=== PATIENT | male | born 1970 | race Caucasian/White ===

== ENCOUNTER 2018-09-07 15:35 | Inpatient (IN) | payer BC ==
[2018-09-07 19:56] VITALS: BMI 25.5
--- NOTE | 2018-09-07 20:46 | HP ---
CIWA Score Nausea/Vomitin Muscle Tremors: 3 Anxiety: 2 Agitation: 2 Paroxysmal Sweats: 3 Orientation: 0-Oriented Tacttile Disturbances: 2-Mild Itch/Numbness/Burn Auditory Disturbances: 2-Mild Harshness/Frighten Visual Disturbances: 1-Very Mild Sensitivity Headache: 1-Very Mild CIWA-Ar Total Score: 18 - Admission Criteria OASAS Guidelines: Admission for Medically Managed Detox: Requires at least one of the followin. CIWA greater than 12 2. Seizures within the past 24 hours 3. Delirium tremens within the past 24 hours 4. Hallucinations within the past 24 hours 5. Acute intervention needed for co occurring medical disorder 6. Acute intervention needed for co occurring psychiatric disorder 7. Severe withdrawal that cannot be handled at a lower level of care (continued vomiting, continued diarrhea, abnormal vital signs) requiring intravenous medication and/or fluids 8. Admission ROS [facility] - HPI Chief Complaint: DEPENDENT ON ETOH, COCAINE AND MARIJUANA Allergies/Adverse Reactions: Allergies Allergy/AdvReac Type Severity Reaction Status Date / Time No Known Allergies Allergy Verified 09/07/18 19:40 History of Present Illness: THE PT. IS REQUESTING ADMISSION TO THE DETOX UNIT AND CAME FOR MEDICAL CLEARANCE AND H AND PE Exam Limitations: No Limitations - Ebola screening Have you traveled outside of the country in the last 21 days: No (N) Have you had contact with anyone from an Ebola affected area: No Have you been sick,other than usual withdrawal symptoms: No Do you have a fever: No - Review of Systems Constitutional: See HPI, Malaise, Weakness EENT: reports: See HPI Respiratory: reports: See HPI Cardiac: reports: See HPI, Syncope GI: reports: See HPI, Nausea, Abdominal cramping : reports: No Symptoms Reported, See HPI Musculoskeletal: reports: See HPI, Muscle Pain, Muscle Weakness Integumentary: reports: See HPI, Flushing, Sweating Neuro: reports: See HPI, Headache, Tremors, Weakness Endocrine: reports: See HPI Hematology: reports: See HPI Psychiatric: reports: Judgement Intact, Orientated x3, Anxious, Depressed Patient History - Patient Medical History Hx Gastrointestinal Disorders: Yes (CIRRHOSIS OF THE LIVER) Hx Human Immunodeficiency Virus (HIV): No Hx Hepatitis C: No Hx Depression: No Hx Suicide Attempt: No Other Medical History: PHOTOPHOBIA; BLOOD CLOTS IN HEPATIC VEIN - Patient Surgical History Past Surgical History: No - Smoking Cessation Smoking history: Current every day smoker Have you smoked in the past 12 months: Yes Aproximately how many cigarettes per day: 3 Hx Chewing Tobacco Use: No Initiated information on smoking cessation: Yes 'Breaking Loose' booklet given: 09/07/18 - Substance & Tx. History Hx Alcohol Use: Yes Hx Substance Use: Yes Substance Use Type: Alcohol, Cocaine, Marijuana Hx Substance Use Treatment: Yes - Substances abused Alcohol Substance route: Oral Frequency: Daily Amount used: 1/5 - 1 pint, 3 beers 12 ounces Age of first use: 17 Date of last use: 09/07/18 Cocaine Substance route: Inhalation Frequency: 1-3 times last 30 days Amount used: $50-100/episode Age of first use: 31 Date of last use: 09/05/18 Marijuana/Hashish Substance route: Smoking Frequency: Daily Amount used: 1-2 blunts Age of first use: 41 Date of last use: 09/06/18 Family Disease History - Family Disease History Family History: Denies Admission Physical Exam [facility] - Vital Signs Vital Signs: Vital Signs - 24 hr 09/07/18 19:47 Temperature 98.1 F Pulse Rate 81 Respiratory 18 Rate Blood Pressure 138/95 - Physical General Appearance: Yes: No Apparent Distress, Nourished, Appropriately Dressed , Tremorous, Sweating, Anxious HEENTM: Yes: Hearing grossly Normal, Normocephalic, Normal Voice, VIRAJ, Pharynx Normal Respiratory: Yes: Chest Non-Tender, Lungs Clear, Normal Breath Sounds, No Respiratory Distress, No Accessory Muscle Use Neck: Yes: No masses,lesions,Nodules, Supple, Trachea in good position Breast: Yes: Breast Exam Deferred, Axillae without masses Cardiology: Yes: Regular Rhythm, S1, S2, Tachycardia Abdominal: Yes: Normal Bowel Sounds, Non Tender, Soft, Protuberent Back: Yes: Normal Inspection Musculoskeletal: Yes: full range of Motion, Gait Steady, Pelvis Stable, Muscle Pain, Muscle weakness Extremities: Yes: Normal Capillary Refill, Normal Range of Motion, Non-Tender, Tremors, Swelling Neurological: Yes: assistant district attorney II-XII NML intact, Fully Oriented, Alert, Motor Strength 5/5, Normal Response, Depressed Affect Integumentary: Yes: Normal Color, Warm, Moist Lymphatic: Yes: Within Normal Limits - Diagnostic (1) EtOH dependence Current Visit: Yes Status: Chronic Qualifiers: Substance use status: other alcohol-induced disorder Qualified Code(s): F10.288 - Alcohol dependence with other alcohol-induced disorder (2) Cocaine dependence Current Visit: Yes Status: Chronic Qualifiers: Substance use status: uncomplicated Qualified Code(s): F14.20 - Cocaine dependence, uncomplicated (3) Cannabis dependence Current Visit: Yes Status: Chronic (4) Photophobia Current Visit: Yes Status: Chronic (5) Hepatic vein thrombosis Current Visit: Yes Status: Chronic (6) Cirrhosis of liver Current Visit: Yes Status: Chronic Qualifiers: Hepatic cirrhosis type: alcoholic cirrhosis Ascites presence: unspecified Qualified Code(s): K70.30 - Alcoholic cirrhosis of liver without ascites Cleared for Admission S - Detox or Rehab [facility] Level of Care: Medically Supervised Detox Regimen/Protocol: Valium Inpatient Rehab Admission - Rehab Decision to Admit Inpatient rehab admission?: No
[2018-09-07] MEDS ORDERED: MENTHOL/PHENOL 1 EACH UD MM PRN (20:51)
[2018-09-07] MEDS ORDERED: hydrOXYzine PAMOATE 25 MG CAPSULE (FP) PO PRN (20:51)
[2018-09-07] MEDS ORDERED: MAG HYDROX/AL HYDROX/SIMETH 30 ML UNIT-DOSE CUP PO PRN (20:51)
[2018-09-07] MEDS ORDERED: IBUPROFEN 400 MG TABLET (FP) PO PRN (20:51)
[2018-09-07] MEDS ORDERED: diazePAM 5 MG TABLET PO ONE (20:51)
[2018-09-07] MEDS ORDERED: NICOTINE POLACRILEX 2 MG GUM BUC PRN (20:51)
[2018-09-07] MEDS ORDERED: METHOCARBAMOL 500 MG TABLET PO PRN (20:51)
[2018-09-07] MEDS ORDERED: ACETAMINOPHEN 325 MG TABLET (FP) PO PRN ×2 (20:51)
[2018-09-07] MEDS ORDERED: BISMUTH SUBSALICYLATE 524 MG/30 ML UD PO PRN (20:51)
[2018-09-07] MEDS ORDERED: MAGNESIUM CITRATE 300 ML BOTTLE PO PRN (20:51)
[2018-09-07] MEDS ORDERED: MAGNESIUM HYDROX 2400MG/30ML ORAL SUSPENSION 30 ML CUP PO PRN (20:51)
[2018-09-07] MEDS ORDERED: diazePAM 5 MG TABLET PO PRN (20:51)
[2018-09-07] MEDS ORDERED: LACTULOSE 20 GM/30 ML UDC (FOR ORAL USE ONLY) PO SCH (21:00)
[2018-09-07] MEDS: THIAMINE HCL 100 MG TABLET (FP) PO SCH (22:24)
[2018-09-07] MEDS: MELATONIN 5 MG TABLETS PO PRN (22:26)
[2018-09-07] MEDS: diazePAM 5 MG TABLET PO SCH (22:56)
[2018-09-07] MEDS: SPIRONOLACTONE 25 MG TABLET (FP) PO SCH (22:57)
[2018-09-07] MEDS: APIXABAN 5 MG TABLET PO SCH (22:57)
[2018-09-07] MEDS: BUMETANIDE 1 MG TABLET PO SCH (22:57)
[2018-09-08] MEDS: diazePAM 5 MG TABLET PO SCH ×3 (06:39→22:21)
[2018-09-08 10:20] LABS: ALBUMIN 1.8 g/dl (3.4-5.0); BILIRUBIN,TOTAL 0.5 mg/dL (0.2-1); BLOOD UREA NITROGEN 11.4 mg/dL (7-18); CALCIUM 7.6 mg/dL (8.5-10.1); CREATININE 0.8 mg/dL (0.55-1.3); POTASSIUM 3.4 mmol/L (3.5-5.1); TOT PROT 4.2 g/dl (6.4-8.2)
[2018-09-08 10:23] LABS: HEMATOCRIT 40.4 % (35.4-49); HEMOGLOBIN 13.9 GM/dL (11.7-16.9); MCH 32.4 pg (25.7-33.7); MCHC 34.5 g/dl (32.0-35.9); MEAN PLT VOLUME 9.1 fl (7.5-11.1); PLATELET COUNT 84 K/MM3 (134-434); WHITE BLOOD COUNT 4.5 K/mm3 (4.0-10.0)
[2018-09-08] MEDS: SPIRONOLACTONE 25 MG TABLET (FP) PO SCH (11:02)
[2018-09-08] MEDS: PRENATAL VITAMINS W/ FOLIC ACID TABLET (FP) PO SCH (11:03)
[2018-09-08] MEDS: APIXABAN 5 MG TABLET PO SCH ×2 (11:03→22:21)
[2018-09-08] MEDS: BUMETANIDE 1 MG TABLET PO SCH (11:03)
--- NOTE | 2018-09-08 12:16 | PN ---
S CIWA - CIWA Score Nausea/Vomitin Muscle Tremors: 2 Anxiety: 2 Agitation: 2 Paroxysmal Sweats: 1-Minimal Palms Moist Orientation: 0-Oriented Tacttile Disturbances: 1-Very Mild Itch/Numbness Auditory Disturbances: 1-Very Mild Visual Disturbances: 0-None Headache: 2-Mild CIWA-Ar Total Score: 13 BHS Progress Note (SOAP) Subjective: alert,irritable,anxious,interrupted sleep,tremor Objective: 09/08/18 12:14 Vital Signs Temperature 97.8 F 09/08/18 09:03 Pulse Rate 65 09/08/18 09:03 Respiratory Rate 18 09/08/18 09:03 Blood Pressure 124/86 09/08/18 09:03 O2 Sat by Pulse Oximetry (%) Laboratory Last Values WBC 4.5 K/mm3 (4.0-10.0) 09/08/18 07:00 RBC 4.30 M/mm3 (4.00-5.60) 09/08/18 07:00 Hgb 13.9 GM/dL (11.7-16.9) 09/08/18 07:00 Hct 40.4 % (35.4-49) 09/08/18 07:00 MCV 94.0 fl (80-96) 09/08/18 07:00 MCH 32.4 pg (25.7-33.7) 09/08/18 07:00 MCHC 34.5 g/dl (32.0-35.9) 09/08/18 07:00 RDW 14.0 % (11.9-15.9) 09/08/18 07:00 Plt Count 84 K/MM3 (134-434) L 09/08/18 07:00 MPV 9.1 fl (7.5-11.1) 09/08/18 07:00 Sodium 145 mmol/L (136-145) 09/08/18 07:00 Potassium 3.4 mmol/L (3.5-5.1) L 09/08/18 07:00 Chloride 112 mmol/L (98-107) H 09/08/18 07:00 Carbon Dioxide 26 mmol/L (21-32) 09/08/18 07:00 Anion Gap 6 MMOL/L (8-16) L 09/08/18 07:00 BUN 11.4 mg/dL (7-18) 09/08/18 07:00 Creatinine 0.8 mg/dL (0.55-1.3) 09/08/18 07:00 Est GFR (CKD-EPI)AfAm 124.16 09/08/18 07:00 Est GFR (CKD-EPI)NonAf 107.13 09/08/18 07:00 Random Glucose 80 mg/dL (74-106) 09/08/18 07:00 Calcium 7.6 mg/dL (8.5-10.1) L 09/08/18 07:00 Total Bilirubin 0.5 mg/dL (0.2-1) 09/08/18 07:00 AST 44 U/L (15-37) H 09/08/18 07:00 ALT 31 U/L (13-61) 09/08/18 07:00 Alkaline Phosphatase 117 U/L (45-117) 09/08/18 07:00 Total Protein 4.2 g/dl (6.4-8.2) L 09/08/18 07:00 Albumin 1.8 g/dl (3.4-5.0) L 09/08/18 07:00 Assessment: 09/08/18 12:15 withdrawal symptom,k dur 20 meq po daily for 3 days for hypokalemia Plan: continue detox
[2018-09-08] MEDS ORDERED: POTASSIUM CHLORIDE TABS 20 MEQ TABLET.ER (FP) PO ONE (13:00)
[2018-09-08] MEDS ORDERED: cloNIDine HCL 0.1 MG TABLET PO ONE (21:17)
[2018-09-08] MEDS: THIAMINE HCL 100 MG TABLET (FP) PO SCH (22:21)
[2018-09-08] MEDS: MELATONIN 5 MG TABLETS PO PRN (22:23)
[2018-09-09] MEDS: SPIRONOLACTONE 25 MG TABLET (FP) PO SCH (11:13)
[2018-09-09] MEDS: APIXABAN 5 MG TABLET PO SCH ×2 (11:14→21:45)
[2018-09-09] MEDS: POTASSIUM CHLORIDE TABS 20 MEQ TABLET.ER (FP) PO SCH (11:14)
[2018-09-09] MEDS: diazePAM 5 MG TABLET PO SCH ×2 (11:14→21:45)
[2018-09-09] MEDS: PRENATAL VITAMINS W/ FOLIC ACID TABLET (FP) PO SCH (11:14)
[2018-09-09] MEDS: BUMETANIDE 1 MG TABLET PO SCH (11:14)
--- NOTE | 2018-09-09 14:48 | PN ---
S CIWA - CIWA Score Nausea/Vomitin-Mild Nausea/No Vomiting Muscle Tremors: 2 Anxiety: 1-Mildly Anxious Agitation: 1-Slight > Activity Paroxysmal Sweats: 1-Minimal Palms Moist Orientation: 0-Oriented Tacttile Disturbances: 0-None Auditory Disturbances: 0-None Visual Disturbances: 0-None Headache: 0-None Present CIWA-Ar Total Score: 6 BHS Progress Note (SOAP) Subjective: pt states he is better on alcohol detox protocol O: Laboratory Tests 09/08/18 09/08/18 09/08/18 07:00 07:00 07:00 WBC 4.5 RBC 4.30 Hgb 13.9 Hct 40.4 MCV 94.0 MCH 32.4 MCHC 34.5 RDW 14.0 Plt Count 84 L MPV 9.1 Sodium 145 Potassium 3.4 L Chloride 112 H Carbon Dioxide 26 Anion Gap 6 L BUN 11.4 Creatinine 0.8 Est GFR (CKD-EPI)AfAm 124.16 Est GFR (CKD-EPI)NonAf 107.13 Random Glucose 80 Calcium 7.6 L Total Bilirubin 0.5 AST 44 H ALT 31 Alkaline Phosphatase 117 Total Protein 4.2 L Albumin 1.8 L RPR Titer Nonreactive low K low albumin/protein- malnourished a/p: continue detox protocol K repletion
[2018-09-09] MEDS: THIAMINE HCL 100 MG TABLET (FP) PO SCH (21:45)
[2018-09-09] MEDS: MELATONIN 5 MG TABLETS PO PRN (21:45)
[2018-09-10] MEDS ORDERED: diazePAM 5 MG TABLET PO SCH (06:00)
[2018-09-10] MEDS: SPIRONOLACTONE 25 MG TABLET (FP) PO SCH (10:39)
[2018-09-10] MEDS: BUMETANIDE 1 MG TABLET PO SCH (10:39)
[2018-09-10] MEDS: POTASSIUM CHLORIDE TABS 20 MEQ TABLET.ER (FP) PO SCH (10:39)
[2018-09-10] MEDS: PRENATAL VITAMINS W/ FOLIC ACID TABLET (FP) PO SCH (10:39)
[2018-09-10] MEDS: APIXABAN 5 MG TABLET PO SCH ×2 (10:40→21:45)
[2018-09-10] MEDS ORDERED: ONDANSETRON *ODT* 4 MG TABLET SL PRN (12:36)
[2018-09-10] MEDS ORDERED: CALCIUM 500MG/VIT-D 200 UNITS COMBO TABLET (FP) PO SCH (14:00)
--- NOTE | 2018-09-10 14:00 | PN ---
S CIWA - CIWA Score Nausea/Vomitin Muscle Tremors: 3 Anxiety: 4-Mod. Anxious/Guarded Agitation: 1-Slight > Activity Paroxysmal Sweats: No Perspiration Orientation: 0-Oriented Tacttile Disturbances: 1-Very Mild Itch/Numbness Auditory Disturbances: 1-Very Mild Visual Disturbances: 0-None Headache: 0-None Present CIWA-Ar Total Score: 13 BHS Progress Note (SOAP) Subjective: Nausea, Anxious, Poor Appetite, Tremors. Objective: PATIENT A & O X 3, OBSERVED AMBULATING ON UNIT UNASSISTED. IN NO ACUTE DISTRESS. 09/10/18 13:54 Vital Signs Temperature 97.1 F L 09/10/18 13:11 Pulse Rate 77 09/10/18 13:11 Respiratory Rate 18 09/10/18 13:11 Blood Pressure 158/113 H 09/10/18 13:11 O2 Sat by Pulse Oximetry (%) Laboratory Tests 09/08/18 09/08/18 09/08/18 07:00 07:00 07:00 WBC 4.5 RBC 4.30 Hgb 13.9 Hct 40.4 MCV 94.0 MCH 32.4 MCHC 34.5 RDW 14.0 Plt Count 84 L MPV 9.1 Sodium 145 Potassium 3.4 L Chloride 112 H Carbon Dioxide 26 Anion Gap 6 L BUN 11.4 Creatinine 0.8 Est GFR (CKD-EPI)AfAm 124.16 Est GFR (CKD-EPI)NonAf 107.13 Random Glucose 80 Calcium 7.6 L Total Bilirubin 0.5 AST 44 H ALT 31 Alkaline Phosphatase 117 Total Protein 4.2 L Albumin 1.8 L RPR Titer Nonreactive LABS NOTED. Assessment: 09/10/18 13:54 WITHDRAWAL SYMPTOMS. HYPOKALEMIA. HYPOCALCEMIA. THROMBOCYTOPENIA. 09/10/18 13:58 Plan: CONTINUE DETOX. INCREASE DAILY PO FLUID / WATER INTAKE. CONTINUE K-DUR FOR HYPOKALEMIA. OSCAL PO FOR HYPOCALCEMIA. DUE TO PRESENCE OF LINGERING WITHDRAWAL SYMPTOMS AND PRESENCE OF CONCURRENT MEDICAL / LABORATORY ABNORMALITIES, PATIENT PERMITTED TO REMAIN ON DETOX UNIT UNTIL TOMORROW AM, AT WHICH TIME HE WILL BE DISCHARGED TO GO ON TO AFTERCARE PLAN - [facility].
[2018-09-10] MEDS: MELATONIN 5 MG TABLETS PO PRN (21:45)
[2018-09-10] MEDS: THIAMINE HCL 100 MG TABLET (FP) PO SCH (21:45)
[2018-09-11 09:58] VITALS: BP 135/94; PULSE 118; TEMP 98.6
--- NOTE | 2018-09-11 16:55 | DS ---
[facility] Detox Discharge Summary Admission Date: 09/07/18 Discharge Date: 09/11/18 - History Present History: Alcohol Dependence, Cannabis Dependence, Cocaine Dependence Additional Comments: PATIENT GOING TO [facility] ([place], [place]) FOR AFTERCARE. PATIENT DECLINED OFFER OF MEDICATION PRESCRIPTION FOR HOME MEDICATION AT TIME OF DISCHARGE FROM DETOX, NOTING THAT HE CURRENTLY HAS ADEQUATE SUPPLIES OF ALL PRESCRIBED HOME MEDICATIONS WITH PROPERTY THAT HE BROUGHT WITH HIM TO DETOX. PATIENT WAS DISCHARGED FROM DETOX UNIT IN STABLE MEDICAL CONDITION. Pertinent Past History: History Of Cirrhosis Of Liver, History Of Photophobia, History of Hepatic Vein Thrombosis, Thrombocytopenia, Hypocalcemia, Hypokalemia. - Physical Exam Results Vital Signs: Vital Signs Temperature 98.6 F 09/11/18 09:57 Pulse Rate 118 H 09/11/18 09:57 Respiratory Rate 20 09/11/18 09:57 Blood Pressure 135/94 09/11/18 09:57 O2 Sat by Pulse Oximetry (%) Pertinent Admission Physical Exam Findings: WITHDRAWAL SYMPTOMS. Laboratory Tests 09/08/18 09/08/18 09/08/18 07:00 07:00 07:00 WBC 4.5 RBC 4.30 Hgb 13.9 Hct 40.4 MCV 94.0 MCH 32.4 MCHC 34.5 RDW 14.0 Plt Count 84 L MPV 9.1 Sodium 145 Potassium 3.4 L Chloride 112 H Carbon Dioxide 26 Anion Gap 6 L BUN 11.4 Creatinine 0.8 Est GFR (CKD-EPI)AfAm 124.16 Est GFR (CKD-EPI)NonAf 107.13 Random Glucose 80 Calcium 7.6 L Total Bilirubin 0.5 AST 44 H ALT 31 Alkaline Phosphatase 117 Total Protein 4.2 L Albumin 1.8 L RPR Titer Nonreactive LABS NOTED. - Treatment Hospital Course: Detox Protocol Followed, Detoxed Safely, Responded well, Discharged Condition Good, Rehab Referral Accepted Patient has Accepted a Rehab Referral to: [facility] ([place], [place]) . - Medication Discharge Medications: Ambulatory Orders Apixaban [Eliquis] 5 mg PO BID 09/07/18 Bumetanide [Bumex -] 1 mg PO DAILY 09/07/18 Lactulose (Oral Use) [Cephulac -] 20 gm PO PRN 09/07/18 Multivitamin [Multiple Vitamins] 1 each PO DAILY 09/07/18 Spironolactone 100 mg PO DAILY 09/07/18 - Diagnosis (1) Cannabis dependence Status: Chronic (2) Cirrhosis of liver Status: Chronic Qualifiers: Hepatic cirrhosis type: alcoholic cirrhosis Ascites presence: unspecified Qualified Code(s): K70.30 - Alcoholic cirrhosis of liver without ascites (3) Cocaine dependence Status: Chronic Qualifiers: Substance use status: uncomplicated Qualified Code(s): F14.20 - Cocaine dependence, uncomplicated (4) EtOH dependence Status: Chronic Qualifiers: Substance use status: other alcohol-induced disorder Qualified Code(s): F10.288 - Alcohol dependence with other alcohol-induced disorder (5) Hepatic vein thrombosis Status: Chronic (6) Photophobia Status: Chronic (7) Hypokalemia Status: Acute (8) Thrombocytopenia Status: Acute (9) Hypocalcemia Status: Acute - AMA Did Patient Leave Against Medical Advice: No
== END 2018-09-11 10:00 | disposition home or self-care (01) | DRG 774 ==
LOC: YASAS 15:35 → Y3N 21:00
PROVIDERS: ADMIT Surgery; ATTEND Surgery
PROC: HZ2ZZZZ Detoxification Services for Substance Abuse Treatment (ICD-10-PCS; principal; 2018-09-07)
DX: F10.230 Alcohol dependence with withdrawal, uncomplicated (principal); F10.288 Alcohol dependence with other alcohol-induced disorder; F14.20 Cocaine dependence, uncomplicated; F12.20 Cannabis dependence, uncomplicated; K70.30 Alcoholic cirrhosis of liver without ascites; E46 Unspecified protein-calorie malnutrition; I82.0 Budd-Chiari syndrome; D69.6 Thrombocytopenia, unspecified; E83.51 Hypocalcemia; E87.5 Hyperkalemia; Z68.25 Body mass index [BMI] 25.0-25.9, adult; H53.149 Visual discomfort, unspecified
CPT/HCPCS: 36415; 80053; 85027; 86593; J0735